=== PATIENT | female | born 1995 | race Asian ===

== ENCOUNTER → 2021-04-05 12:44 | Outpatient (CLI) | payer OTHER, MEDICAID, SELFPAY ==
[2021-04-05 14:33] LABS: Add Manual Diff / Slide Review NO; Basophils Absolute Auto 0 /uL (0-100); Basophils Percent Auto 0.2 % (0-2); Eosinophils Absolute Auto 200 /uL (0-450); Eosinophils Percent Auto 2.1 % (2-4); Hemoglobin 11.3 g/dL (12.0-16.0); Lymphocytes Absolute Auto 1700 /uL (1100-4500); Lymphocytes Percent Auto 18.6 % (25-40); Mean Corpuscular HGB Conc 33.3 % (30-36); Mean Corpuscular Hemoglobin 30.4 PG (26-34); Mean Corpuscular Volume 91.3 fL (80-100); Monocytes Absolute Auto 600 /uL (0-900); Monocytes Percent Auto 6.2 % (3-14); Neutrophils Absolute Auto 6600 /uL (1500-7000); Neutrophils Percent Auto 72.9 % (50-75); Platelet Count 236 X10^3/uL (150-400); Red Blood Cell Count 3.72 X10^6/uL (4.0-5.2); Red Cell Distribution Width 12.3 % (11.6-14.8)
[2021-04-05 15:05] LABS: GTT (PREG) 1 Hour PP 50gm Dose 156 mg/dL (76-139)
== END ==
PROVIDERS: Referring Provider Obstetrics & Gynecology; Visit Provider Obstetrics & Gynecology
DX: Z34.03 Encounter for supervision of normal first pregnancy, third trimester (principal); Z3A.27 27 weeks gestation of pregnancy
CPT/HCPCS: 36415; 82950; 85025

== ENCOUNTER → 2021-04-12 09:09 | Outpatient (CLI) | payer OTHER, MEDICAID, SELFPAY ==
[2021-04-12 10:17] LABS: Glucose Fasting Gestational 84 mg/dL (76-95)
[2021-04-12 12:54] LABS: Glucose 2 Hour Gest 89 mg/dL (76-155)
[2021-04-12 13:34] LABS: Glucose 3 Hour Gest 136 mg/dL (76-140)
== END ==
PROVIDERS: Referring Provider Obstetrics & Gynecology; Visit Provider Obstetrics & Gynecology
DX: O99.810 Abnormal glucose complicating pregnancy (principal)
CPT/HCPCS: 36415; 82951; 82952

== ENCOUNTER → 2021-05-26 07:58 | Outpatient (CLI) | payer OTHER, MEDICAID, SELFPAY ==
--- NOTE | 2021-05-26 07:59 | DI.US.S_ITS ---
PROCEDURE: US OB LIMITED INDICATIONS: SGA OUTSIDE/PRIOR DATING DATA: Last menstrual period (LMP): September 15, 2020. LMP-based estimated date of delivery (GARY): July 04, 2021. First dating scan (date and location): [facility]; March 12, 2022. Estimated date of delivery (GARY) from first dating scan: July 05, 2021. TECHNIQUE: Real-time scanning was performed of the fetus, with image documentation and biometric measurements. COMPARISON: None. FINDINGS: General: A single living intrauterine gestation is present. Presentation: Vertex. Placenta: Placental position is anterior , without previa. Amniotic fluid index: 11.8 cm, normal range is 5-24 cm. Single deepest vertical pocket is 5.5 cm. heart rate: 144 beats per minute. Maternal cervical canal: 4 cm long. Normal lower limit is 2.5 cm. biometrics: Biparietal diameter: 8.8 cm Head circumference: 32.3 cm Abdominal circumference: 28.3 cm Femur length: 6 cm Clinically estimated gestational age: 34 weeks, 2 days Composite gestational age from present scan: 33 weeks, 6 days Estimated weight and percentile: 2028 g +/-300 g; 9 percentile Other: Not applicable. IMPRESSION: Live single intrauterine gestation as detailed above with disconcordant measurements. We strive to produce accurate, complete, and clear reports of imaging services. To assist us in improving patient care, this report was composed using standard report templates and voice recognition software. Therefore, it may contain abnormal punctuation, insertions and/or omissions. Occasional wrong-word or sound-alike substitutions may occur. Though we review the report and make efforts to correct it, we do recommend that the report be read carefully in proper context to recognize any text inaccuracies. Dictated by: Dejuan Sommers M.D. on 05/26/2021 at 10:54 Approved by: Dejuan Sommers M.D. on 05/26/2021 at 10:57
== END ==
PROVIDERS: Referring Provider Obstetrics & Gynecology; Visit Provider Obstetrics & Gynecology
DX: O26.843 Uterine size-date discrepancy, third trimester (principal); Z3A.33 33 weeks gestation of pregnancy
CPT/HCPCS: 76815

== ENCOUNTER → 2021-06-07 11:46 | Outpatient (CLI) | payer OTHER, MEDICAID, SELFPAY ==
[2021-06-08 10:20] LABS: Strep Grp B PCR NEG for Grp B Strep
== END ==
PROVIDERS: Visit Provider Obstetrics & Gynecology
DX: Z36.85 Encounter for antenatal screening for Streptococcus B (principal); Z3A.36 36 weeks gestation of pregnancy
CPT/HCPCS: 87653

== ENCOUNTER 2021-06-28 11:30 | Outpatient (CLI) | payer OTHER, MEDICAID, SELFPAY | END 2021-06-28 12:10 | disposition home or self-care (01) | LOC: OB 06-30 07:55 | PROVIDERS: Referring Provider Obstetrics & Gynecology; Visit Provider Obstetrics & Gynecology | DX: O36.5930 Maternal care for other known or suspected poor fetal growth, third trimester, not applicable or unspecified (principal); O47.1 False labor at or after 37 completed weeks of gestation; Z3A.39 39 weeks gestation of pregnancy | CPT/HCPCS: 59025; G0378; G0379 ==

== ENCOUNTER 2021-07-03 19:33 | Inpatient (IN) | payer OTHER, MEDICAID, SELFPAY ==
[2021-07-03 20:19] VITALS: BP 121/79
--- NOTE | 2021-07-03 20:19 | PM.OBHP.1 ---
OB HPI Date/Time Date of admission: 07/03/21 Date Patient Seen: 07/04/21 Time Patient Seen: 07:30 History of Present Condition Chief complaint: INDUCTION : 1 Para: 0 Estimated Date of Delivery: 07/02/21 Estimated Gestational Age (weeks): 40+1 Narrative: Erasto Kumar is a 25 year old primigravida admitted now at 40+1 weeks EGA for cervical ripening/induction of an SGA (9th %'tile EFW) . GBS negative. 1 hr. GDM screen elevated but 3 hr. GTT was negative. Indications Indication for induction OB: other (Small for gestational age) History of Present care: good care and other (Late transfer to 03/2021) Dating criteria: LMP confirmed by 1st trimester US Medical complications: other (Small for gestational age) Preadmission Labs Blood type: O (+) positive -: Antibody screen: negative, GBS status: negative, HBsAG: negative, HIV: negative and RPR/VDLR: negative -: Chlamydia screen: not detected and Gonorrhea screen: not detected -: Rubella: immune and Varicella: immune HCT: 30.8 HCAB: negative PAP: Normal Quad screen: Normal 1 hr GTT: 156 3 hr GTT: 1 hr (153), 2 hr (89) and 3 hr (136) Fasting blood glucose: 84 Prior (ies) History: N/A Evaluation Evaluation Baseline heart rate: 135 Variability: Moderate (11-25) monitor accelerations: Present Monitor Decelerations: Absent Contraction Frequency (minutes): 3 Uterine Contraction Intensity: Moderate Category of Tracing: Reactive Status: Category l Dilation (cm): 2 Effacement (%): 80 Dilation: 1-2 cm Effacement: >/=80% station: -1 Position of cervix: anterior Consistency: soft Treviño score: 10 PFSH Medical History Acne Allergies Chlamydia infection affecting Eczema Frequent UTI (~2018) HTN (hypertension) Family History Mother Hypertension Allergies Grandfather History of heart disease Hypertension Stroke Grandmother Stroke Hypertension Low blood pressure Grandfather Cancer Grandmother History of heart disease Social History marital status: unmarried,living together household members: significant other and other caregiver/support person: Yes (parents and partner) housing: house pets and animals: Yes (dogs, cats - no litter box) occupational status: unemployed travel history: over 6 months ago seatbelt use: always water heater temp set < 120 deg: Yes working smoke detector in home: Yes fire extinguisher in home: Yes carbon monox detector in home: Yes firearms in home: Yes do you feel safe at home: Yes Smoking Status: Never smoker alcohol intake: former during the past year weight has: remained stable well-balanced diet: daily or most days daily servings fruits/ve or more times/day caffeine: Yes (decaf) Type(s) of exercise: walking and regular exercise frequency: 3-4 times per week duration: 30-45 minutes/day Meds Home Medications and Allergies Home Medications Medication Instructions Recorded Confirmed Type vitamins no.121-iron 28 tab PO .qd tab 03/28/21 06/21/21 History mg-folic acid 800 mcg tablet Allergies Allergy/AdvReac Type Severity Reaction Status Date / Time No Known Drug Allergies Allergy Verified 07/03/21 20:31 OB Exam HENMT Head: normal to inspection, normocephalic and atraumatic Eyes General: appearance normal, both eyes and all related structures Resp Effort & Inspection: normal respiratory effort and able to speak in complete sentences Auscultation: clear to auscultation bilaterally Cardio Rhythm: regular rhythm Heart Sounds: S1 normal, S2 normal and no murmurs Extremities Lower extremity: Yes normal to inspection; No edema GI Inspection: normal to inspection Palpation: soft and no hepatosplenomegaly Uterus Location (Fundal Height): 34 Presentation: vertex Estimated Weight (lbs): 6 Objective Labs Result Diagrams: 07/03/21 21:00 Assessment and Plan Assessment and Plan Assessment and Plan narrative: ASSESSMENT 1. Intrauterine gestation, Ahuja, 40+2 weeks EGA, vertex 2. Small for gestational age (constitutional) 3. Mild anemia 4. GBS negative PLAN 1. Cervical ripening with Cytotec p.o.; initiate Pitocin as indicated 2. Anticipate ; patient desires JENNIFER for pain management in labor 3. See admission orders 4. IV Fe+ following delivery Time Spent with Patient Total time spent with greater than 50% in coordination of care (as documented) at patient's floor/unit and/or counseling patient:: 15-24 minutes
[2021-07-03] MEDS: miSOPROStoL 25 MCG TABLET 50 MCG PO (20:38)
[2021-07-03 20:40] LABS: COVID19 -Nasal RAPID Negative (Negative)
[2021-07-03 21:27] LABS: Hematocrit 30.8 % (36-46); Hemoglobin 10.4 g/dL (12.0-16.0); Mean Corpuscular HGB Conc 33.7 % (30-36); Mean Corpuscular Hemoglobin 28.5 PG (26-34); Mean Corpuscular Volume 84.7 fL (80-100); Platelet Count 249 X10^3/uL (150-400); Red Blood Cell Count 3.64 X10^6/uL (4.0-5.2); Red Cell Distribution Width 12.9 % (11.6-14.8); White Blood Cell Count 9.2 X10^3/uL (4.5-11.0)
[2021-07-03 21:28] LABS: Add Manual Diff / Slide Review YES
[2021-07-04] MEDS: miSOPROStoL 25 MCG TABLET 50 MCG PO (02:30)
[2021-07-04 06:47] LABS: Neutrophils Absolute Manual 6624 /uL (3000-5900); Total Cells Counted 100
[2021-07-04 06:48] LABS: RBC Morphology Norm
--- NOTE | 2021-07-04 08:46 | PM.OBPNLAB ---
Date/Time Date Patient Seen: 07/04/21 Time Patient Seen: 08:46 Pain Control Pain control: tolerating well Comments: Desires epidural once labor pain necessitates placement. Pelvic Exam Dilation (cm): 2 Effacement (%): 80 station: -1 Amniotic membrane status: Intact Contractions Contractions on admission: none Monitor mode: External Contraction pattern: Irregular Contraction phase: Resting Contraction intensity: Moderate Status status: Category l Heart Rate Baseline: 130 Monitor Accelerations: Present Monitor Decelerations: Absent Monitor Variability: Moderate Assessment and Plan Assessment: induction ongoing Plan: begin patient augmentation Comments: Will initiate low dose Pitocin with favorable cervix and contractions spacing out after 2nd dose of PO Cytotec.
[2021-07-04] MEDS: OXYTOCIN PREMIX 30 UNIT/500 ML PLAST..BAG IV (08:57)
[2021-07-04] MEDS: LACTATED RINGERS 1,000 ML 100 ML IV ×2 (08:58→10:52)
[2021-07-04] MEDS: FENT 2MCG/ML BUPIV 0.125% EPI 200 MCG/100 ML PLAST..BAG 6 MCG EPIDURAL ×2 (10:51→19:36)
--- NOTE | 2021-07-04 11:55 | PM.AN.REGBLK ---
Regional Block Pre-procedure Procedure: Continuous Lumbar Epidural for L&D Attending OB provider: Mega Thapa PM/MARIBEL narrative: term induction, no complications ASA Class: II Labs: Hct 30.8 % (36-46) L 07/03/21 21:00 Plt Count 249 X10^3/uL (150-400) 07/03/21 21:00 Medications: Current Medications Generic Name Dose Route Start Last Admin Trade Name Freq PRN Reason Stop Dose Admin Carboprost Tromethamine 250 mcg 07/03/21 20:09 Carboprost 250 Mcg/Ml Ampul IM Q90M PRN Bleeding Diphenhydramine HCl 25 mg 07/04/21 09:57 Diphenhydramine 50 Mg/Ml Vial IV Q10M PRN Pruritis Fentanyl 50 mcg 07/03/21 20:14 Fentanyl 100 Mcg/2 Ml Inj IV Q1H PRN Pain, Moderate (4-6) Lactated Ringer's 1,000 mls @ 100 mls/hr 07/03/21 20:15 07/04/21 10:52 Lactated Ringers IV 100 mls/hr CONT DEVAN Administration Oxytocin/Lactated Ringer's 30 unit in 500 mls @ 200 mls/hr 07/03/21 20:09 Oxytocin Premix IV CONT PRN Bleeding Protocol Tranexamic Acid 1,000 mg/ 100 mls @ 200 mls/hr 07/03/21 20:09 Sodium Chloride IV NOW PRN Bleeding Oxytocin/Lactated Ringer's 30 unit in 500 mls @ 1 mls/hr 07/04/21 09:00 07/04/21 08:57 Oxytocin Premix IV 1 milliunit/min TITRATE DEVAN 1 mls/hr Administration Protocol 1 MILLIUNIT/MIN FENT 2MCG/ML BUPIV 0.125% EPI 200 mcg in 100 mls @ 6 mls/hr 07/04/21 10:00 07/04/21 10:51 Fentanyl/Bupiv/Ns 2mcg/Ml - 0.125% EPIDURAL 6 mls/hr CONT DEVAN Administration Methylergonovine Maleate 0.2 mg 07/03/21 20:09 Methylergonovine 0.2 Mg Tablet PO Q6HR PRN Heavy Bleeding Methylergonovine Maleate 0.2 mg 07/03/21 20:09 Methylergonovine 0.2 Mg/Ml Vial IM NOW PRN Bleeding Misoprostol 800 mcg 07/03/21 20:09 Misoprostol 200 Mcg Tablet ND NOW PRN Bleeding Misoprostol 1,000 mcg 07/03/21 20:09 Misoprostol 200 Mcg Tablet ND NOW PRN Bleeding Misoprostol 400 mcg 07/03/21 20:09 Misoprostol 200 Mcg Tablet SL NOW PRN Bleeding Misoprostol 50 mcg 07/03/21 20:30 07/04/21 02:30 Misoprostol 25 Mcg Tablet PO 50 mcg Q6H DEVAN Administration Nalbuphine HCl 2.5 mg 07/04/21 09:57 Nalbuphine 20 Mg/Ml Ampul IV Q10M PRN Pruritis Naloxone HCl 0.2 mg 07/03/21 20:14 Naloxone 0.4 Mg/Ml Vial IV Q2MIN PRN Opiate Reversal Ondansetron HCl 4 mg 07/03/21 20:14 Ondansetron 4 Mg/2 Ml Inj IV Q4HR PRN Nausea And Vomiting Oxytocin 10 unit 07/03/21 20:09 Oxytocin 10 Unit/Ml Vial IM NOW PRN Bleeding Zolpidem Tartrate 5 mg 07/03/21 20:14 Zolpidem 5 Mg Tablet PO BEDTIME PRN Sleep Allergies: Allergies Allergy/AdvReac Type Severity Reaction Status Date / Time No Known Drug Allergies Allergy Verified 07/03/21 20:31 Procedure Insertion date: 07/04/21 Insertion time: 10:35 Prep/Local: betadine x3 and 1% lidocaine Interspace: L3-4 Patient position: sitting Needle: 18 gauge [employer] (CSE: 27g Pencan through Hustead, clear CSF, 0.5mL 0.5% bupiv MPF) Loss of resistance with: saline LYNNE at (cm): 5 Catheter placed at SKIN (cm): 10 Catheter in SPACE (cm): 5 Insertion: No CSF, No Blood, No Paresthesia with insertion, No Paresthesia with injection and No Test dose reaction Initial Medications TEST DOSE time: 10:36 BOLUS DOSE time: 10:41 BOLUS DOSE (mL): 3 BOLUS DOSE med: other (infusate) Infusion INFUSION: 0.125% bupivacaine and with fentanyl 2 mcg/mL Initial rate (mL/hr): 6 Subsequent interventions: 17:00 6mL 0.25% bupiv, rate to 8 19:40 6mL 0.25% bupiv Post-procedure Anesthesia time START: 10:30 Anesthesia time END: 22:00 Post-procedure Anesthesia Assessment: Yes CV function: HR/BP stable, Yes Resp function: RR/sat/airway adequate, Yes Mental status appropriate and No Anesthesia complications
--- NOTE | 2021-07-04 13:36 | PM.OBPNLAB ---
Date/Time Date Patient Seen: 07/04/21 Time Patient Seen: 13:36 Pain Control Pain control: epidural Pelvic Exam Dilation (cm): 3 Effacement (%): 80 station: -1 Amniotic membrane status: Intact Contractions Monitor mode: External Pitocin rate (mU/min): 4 Contraction frequency (min): 2 Contraction pattern: Irregular Contraction phase: Resting Contraction intensity: Moderate Status status: Category l Heart Rate Baseline: 130 Monitor Accelerations: Present Monitor Decelerations: Absent Monitor Variability: Moderate Assessment and Plan Assessment: induction ongoing Plan: continuous present management
--- NOTE | 2021-07-04 16:57 | PM.OBPNLAB ---
Date/Time Date Patient Seen: 07/04/21 Time Patient Seen: 16:59 Pain Control Pain control: epidural (Significant discomfort left lower abdomen despite JENNIFER) Pelvic Exam Dilation (cm): 5 Effacement (%): 100 station: 0 Amniotic membrane status: Ruptured Comments: AROM, clear fluid @ 1650 Contractions Contractions on admission: none Monitor mode: External Pitocin rate (mU/min): 5 Contraction frequency (min): 3 Contraction duration (min): 1 Contraction pattern: Irregular Contraction phase: Resting Contraction intensity: Moderate Status status: Category l Heart Rate Baseline: 135 Monitor Accelerations: Present Monitor Decelerations: Absent Monitor Variability: Moderate Assessment and Plan Assessment: induction ongoing Plan: continuous present management Comments: AROM performed and Pitocin infusion decreased to 2 mIU/min.
--- NOTE | 2021-07-04 20:55 | PM.OBPNLAB ---
Date/Time Date Patient Seen: 07/04/21 Time Patient Seen: 20:40 Pelvic Exam Dilation (cm): 10 Effacement (%): 100 station: +1 Amniotic membrane status: Ruptured Comments: CINDY Contractions Contractions on admission: none Monitor mode: External Pitocin rate (mU/min): 2 Contraction frequency (min): 3 Contraction duration (min): 1 Contraction pattern: Regular Contraction phase: Resting Contraction intensity: Moderate Status status: Category l Heart Rate Baseline: 140 Monitor Decelerations: Variable (With pushing) Monitor Variability: Moderate Assessment and Plan Assessment: induction ongoing Plan: continuous present management Comments: Will start pushing.
--- NOTE | 2021-07-04 22:20 | P.PCNOB_ITS ---
Events: Other (Small for gestational age) Labor & Delivery Delivery date: 07/04/21 Intrapartal Events: Hypotonic Dysfunction Cervical ripening method: per misoprostal protocol Induction method: per pitocin protocol Delivery augmentation: rupture of membranes and pitocin Delivery monitor: external FHT and external uterine Route of delivery: Episiotomy description: None L&D Laceration Description: Perineal - 1st Degree Delivery repair: chromic Estimated blood loss (mL): 150 Anesthesia Type: Epidural Narrative: Following a second stage of labor lasting approximately 80 minutes, the patient delivered spontaneously over an intact perineum a viable male infant, weight 3292 g (7 lb 4.1 oz), with an of 8/9. The placenta was then delivered with gentle cord traction, intact with 3 vessels and a central cord insertion. Cord blood sample was taken for routine studies. IV Pitocin was administered along with fundal massage rendering the fundus firm. The p erineum was then inspected and a first-degree midline perineal laceration was noted. The defect was closed with 3 small [id number] stitches using 3-0 chromic catgut suture. At the completion the case patient had minimal bleeding and no bleeding from her perineal laceration. Estimated blood loss was approximately 150 cc. Mother and infant both doing well. [place] Baby 1: gender: Male Presentation: vertex Position: Left Occiput Anterior Placenta delivery description: Spontaneous score (1 min): 8 score (5 min): 9 weight: 7 lb 4.122 oz Plan for aftercare: Routine care
[2021-07-05] MEDS: DERMOPLAST SPRAY 20% 60 ML 1 SPRAY TOP (02:19)
[2021-07-05] MEDS: ACETAMINOPHEN 325 MG TABLET 650 MG PO (02:19)
--- NOTE | 2021-07-05 07:44 | PM.OBPN.1 ---
Subjective - OB Subjective Patient comments: no complaints and pain well controlled baby status: doing well feeding status: exclusively breast feeding Date Patient Seen: 07/05/21 Objective Labs Result Diagrams: 07/03/21 21:00 Assessment & Plan Time Spent With Patient Time: Total time spent is greater than 50% in coordination of care (as documented) at patient's floor/unit and/or counseling patient:
[2021-07-05 08:37] LABS: Add Manual Diff / Slide Review NO; Basophils Absolute Auto 0 /uL (0-100); Basophils Percent Auto 0.1 % (0-2); Eosinophils Absolute Auto 0 /uL (0-450); Eosinophils Percent Auto 0.1 % (2-4); Hematocrit 30.7 % (36-46); Hemoglobin 10.1 g/dL (12.0-16.0); Lymphocytes Absolute Auto 1700 /uL (1100-4500); Lymphocytes Percent Auto 12.8 % (25-40); Mean Corpuscular HGB Conc 32.8 % (30-36); Mean Corpuscular Hemoglobin 27.6 PG (26-34); Mean Corpuscular Volume 84.3 fL (80-100); Monocytes Absolute Auto 900 /uL (0-900); Monocytes Percent Auto 6.7 % (3-14); Neutrophils Absolute Auto 10400 /uL (1500-7000); Neutrophils Percent Auto 80.3 % (50-75); Platelet Count 239 X10^3/uL (150-400); Red Blood Cell Count 3.65 X10^6/uL (4.0-5.2); Red Cell Distribution Width 13.1 % (11.6-14.8); White Blood Cell Count 12.9 X10^3/uL (4.5-11.0)
--- NOTE | 2021-07-05 15:37 | P.DS_ITS ---
Discharge Providers Provider Date of admission: 07/03/21 19:33 Discharge Date: 07/05/21 Consults: 07/05/21 22:25 Consult to Dispatcher [employer] Routine Comment: Discharge provider: Mega Thapa MD Summary Hospital Course Date Patient Seen: 07/05/21 Time Patient Seen: 15:38 Diagnoses: Intrauterine , 40+ 2 weeks gestational age, delivered Small for gestational age fetus Mild anemia Hemorrhoids Hospital Course: The patient was admitted on the evening of 07/03/2021 for induction due to small for gestational age infant. Cervical ripening was accomplished with oral Cytotec overnight and on the morning of 07/04/2021, the patient's induction with Pitocin was initiated. Or on the evening of 07/04/2021, the patient delivered spontaneously a viable male infant, weight 3292 g (7 lb 4.1 oz), with an of 8/9. She sustained a first-degree perineal laceration which was r epaired at the time of delivery. Following delivery the patient has done extremely well with prompt return of bowel and bladder function, she is ambulating independently, tolerating a regular diet, and her pain is well controlled with oral medications. She will be discharged at this time in an afe brile normotensive condition to home with medications to include vitamins 1 p.o. q.d., OTC Tylenol/ibuprofen for pain control, and either OTC stool softeners or MiraLax for constipation. The patient has not made any decision about contraception. Prior to discharge the patient was counseled regarding precautionary symptoms, limitations of activity, medications, and plans for follow-up which will be in 6 weeks. In addition a referral to General surgery for evaluation of her hemorrhoids which are significant and longstanding. Peripartum Data Infant Delivery Method: Natural Vaginal Laceration Description: Perineal - 1st Degree Episiotomy description: None complications: none [place] 1: Gender: Male Disposition of : home Status at Discharge Cognitive/behavioral status at discharge: oriented Functional status at discharge: independent ambulation Overall status at discharge: patient is progressing back to baseline Time Spent with Patient Time attestation: Total time spent providing and/or coordinating discharge services: Time spent: Less than 30 minutes Specific discharge activities: See discharge instructions Objective Labs Result Diagrams: 07/05/21 08:15 Labs: Laboratory Results - last 24 hr 07/05/21 08:15 WBC 12.9 H RBC 3.65 L Hgb 10.1 L Hct 30.7 L MCV 84.3 MCH 27.6 MCHC 32.8 RDW 13.1 Plt Count 239 Neut % (Auto) 80.3 H Lymph % (Auto) 12.8 L Hopkins % (Auto) 6.7 Eos % (Auto) 0.1 L Baso % (Auto) 0.1 Neut # (Auto) 09921 H Lymph # (Auto) 1700 Hopkins # (Auto) 900 Eos # (Auto) 0 Baso # (Auto) 0 Exam Const General: cooperative, comfortable and No acute distress Nutritional Appearance: average body habitus Orientation: alert and oriented x3 HENMT Head: normal to inspection Eyes General: appearance normal, both eyes and all related structures Neck Neck: normal visual inspection Resp Effort & Inspection: normal respiratory effort and able to speak in complete sentences GI Inspection: normal to inspection and other (Gravid, nontender fundus U -4) Palpation: soft and no hepatosplenomegaly Psych Appearance: grossly normal Mental Status: mental status grossly normal Speech and Movement: speech and movement normal Mood: congruent mood Affect: normal affect Attitude: cooperative Thought Process: normal Thought Content: normal Judgment: judgment good Discharge Plan Discharge Plan Patient Disposition: Home Provider Discharge Comment: Please review the written instructions you received when you were discharged from the hospital. Your follow-up appointment will be in 6 weeks and I look forward to seeing you then. If in the meanwhile you have any issues, concerns, or problems, please feel free to contact me either through the office phone or via the patient portal. Discharge orders & Medications Prescriptions: Continued PNV no.[id number] acid 28 mg iron- 800 mcg tablet PO .qd 0RF Follow up/Referrals: Mega Thapa MD [Physician] - Discharge Health Status Multidrug resistant organism: No MDRO Diet/Activity/Treatments Diet: Diet as Tolerated Activity: As tolerated Other treatments: OTC Tylenol and/or ibuprofen as needed pain. OTC stool softener or MiraLax as needed for constipation. A referral to General surgery for evaluation of her hemorrhoids will be submitted in the next few weeks. Skin/Wound/Dressing Care Report to your healthcare provider any signs of infection, such as:: chills, fever, increased pain, unusual drainage and unusual redness Dressing: N/A Visit Report/Discharge Packet Instructions: DI for Labor and Delivery, Vaginal , DI for and Nipple Soreness
[2021-07-05 17:45] VITALS: BP 121/79; PULSE 80; RESP 16; TEMP 36.9
== END 2021-07-05 20:20 | disposition home or self-care (01) | DRG 560 ==
PROVIDERS: Admitting Provider Obstetrics & Gynecology; Referring Provider Obstetrics & Gynecology; Visit Provider Obstetrics & Gynecology
DX: O48.0 Post-term pregnancy (principal); Z3A.40 40 weeks gestation of pregnancy; Z37.0 Single live birth; O70.0 First degree perineal laceration during delivery; O99.02 Anemia complicating childbirth; O62.2 Other uterine inertia; D64.9 Anemia, unspecified; O87.2 Hemorrhoids in the puerperium; Z20.822 Contact with and (suspected) exposure to COVID-19
CPT/HCPCS: 01967; 36415; 59050; 59409; 85007; 85025; 86850; 86900; 86901; 87635; C9803; G0379; J2590